=== PATIENT | female | born 1955 | race Hispanic/Latino ===

== ENCOUNTER → 2017-12-18 | Outpatient (CLI) | payer OTHER | END | disposition home or self-care (01) | LOC: SHCH 14:36 | PROVIDERS: ATTEND Internal Medicine Cardiovascular Disease | DX: I20.0 Unstable angina (principal) | CPT/HCPCS: 93306 ==

== ENCOUNTER → 2018-03-05 | Outpatient (CLI) | payer OTHER ==
[~2018-03-05] MED LIST: REGADENOSON 0.4 MG/5 ML PF SYG IVP SCH
== END | disposition home or self-care (01) ==
LOC: SHCH 09:42
PROVIDERS: ATTEND Internal Medicine Cardiovascular Disease
DX: I20.8 Other forms of angina pectoris (principal)
CPT/HCPCS: 78452; 93017; 96374; A9500 ×2; J2785

== ENCOUNTER → 2020-09-23 | Outpatient (CLI) | payer OTHER | END | disposition home or self-care (01) | LOC: SHCH 16:56 | PROVIDERS: ATTEND Internal Medicine Cardiovascular Disease | DX: R07.9 Chest pain, unspecified (principal) | CPT/HCPCS: 93306; 93356 ==

== ENCOUNTER → 2021-11-25 | Outpatient (CLI) | payer OTHER | END | disposition home or self-care (01) | LOC: SHCH 10:09 | PROVIDERS: ATTEND Internal Medicine Cardiovascular Disease | DX: I25.119 Atherosclerotic heart disease of native coronary artery with unspecified angina pectoris (principal); R06.09 Other forms of dyspnea; I10 Essential (primary) hypertension; E78.5 Hyperlipidemia, unspecified; E66.9 Obesity, unspecified | CPT/HCPCS: 93306 ==

== ENCOUNTER → 2021-11-29 | Outpatient (CLI) | payer OTHER | END | disposition home or self-care (01) | LOC: SHCH 08:22 | PROVIDERS: ATTEND Internal Medicine Cardiovascular Disease | DX: I20.9 Angina pectoris, unspecified (principal); R07.9 Chest pain, unspecified | CPT/HCPCS: 78452; 96374; 93017; J2785; A9500 ×2 ==

== ENCOUNTER → 2023-06-29 | Outpatient (CLI) | payer OTHER | END | disposition home or self-care (01) | LOC: SHCH 07:58 | PROVIDERS: ATTEND Internal Medicine Cardiovascular Disease | DX: I87.2 Venous insufficiency (chronic) (peripheral) (principal) | CPT/HCPCS: 93970 ==

== ENCOUNTER → 2023-08-17 | Outpatient (CLI) | payer OTHER | LOC: SHCH 07:48 | PROVIDERS: ATTEND Internal Medicine Cardiovascular Disease | DX: I51.89 Other ill-defined heart diseases (principal); I70.208 Unspecified atherosclerosis of native arteries of extremities, other extremity; R06.09 Other forms of dyspnea; I25.10 Atherosclerotic heart disease of native coronary artery without angina pectoris; I10 Essential (primary) hypertension; E78.5 Hyperlipidemia, unspecified | CPT/HCPCS: 93306; 93880 ==

== ENCOUNTER → 2024-04-01 | Outpatient (CLI) | payer OTHER ==
[2024-04-01 16:52] LABS: CREATININE 0.8 mg/dL (0.5-1.0); POTASSIUM 4.3 mmol/L (3.5-5.1)
== END | disposition home or self-care (01) ==
LOC: LAB 11:29
PROVIDERS: ATTEND Internal Medicine Cardiovascular Disease
DX: I20.0 Unstable angina (principal); R07.9 Chest pain, unspecified
CPT/HCPCS: 36415; 80048

== ENCOUNTER → 2024-04-08 | Outpatient (CLI) | payer OTHER ==
[~2024-04-08] MED LIST changes: +IOHEXOL-350 50ML VIAL IV ONE; +IOHEXOL-350 75 ML VIAL IV ONE; -REGADENOSON 0.4 MG/5 ML PF SYG IVP SCH; +metoPROLOL tartRATE 1 MG/ML 5ML VIAL IV ONE
--- NOTE | 2024-04-08 14:24 | HMCIMG ---
CT CARDIAC ANGIO W/CONT. CCTA HISTORY: Chest pain COMPARISON: None TECHNIQUE: Multiple sequential axial images of the chest were obtained along with the CT angiogram of the chest study. Patient was given 100 cc of Omnipaque through intravenous route. FINDINGS: There is no evidence of pulmonary nodule or parenchymal disease. No pleural effusion or pericardial effusion is seen. There is no evidence of pneumothorax. There are normal size mediastinal and hilar lymph nodes. The heart is not enlarged. Degenerative changes of the thoracolumbar spine are present. There is diaphragmatic hernia. IMPRESSION: 1. No evidence of pulmonary nodule or effusion is seen. Please see CT angiogram report of coronary arteries.
--- NOTE | 2024-04-10 16:59 | CARDIOLOGY ---
RAD REPORT: CORNARY CT ANGIO RADIOLOGY REPORT: CORONARY CT ANGIOGRAPHY DATE: Apr 10, 2024 QUALITY: Excellent CLINICAL HISTORY AND INDICATION: [ uncontrolled HTN ] TECHNIQUE: After obtaining a preliminary community services manager image, contrast imaging performed on an [employer] [id number] scanner. A dedicated, limited window, coronary imaging protocol was used, with single breath-hold, retrospective ECG gating, and automated arrhythmia rejection. 100 cc of low osmolar contrast agent: Omnipaque 350 was delivered via a 18-gauge IV catheter in the right antecubital fossa, using a power injector and followed by 60 cc of normal saline bolus as a chaser. Collimated images were reformatted at 0.5 mm intervals, and sent to an offline independent workstation for interpretation, using 3D anatomic reconstructions: Curved multiplanar reconstructions, maximum intensity projections, and multiplanar imaging. 5 mg IV metoprolol was administered prior to scanning. 0.8 mg SL nitroglycerin was given. CORONARY ARTERY DESCRIPTIONS: The coronary arteries arise in normal position. Left main coronary artery: Normal caliber vessel that bifurcates into the LAD and LCx. No stenosis. Left anterior descending coronary artery: Normal caliber vessel and gives rise to diagonal and septal branches. No stenosis. Left circumflex coronary artery: Normal caliber, nondominant and gives rise to a large OM branch. No stenosis. Right coronary artery: Large, dominant vessel giving rise to the PL and PDA branches. There is calcified plaque in the proximal RCA with 20-30% stenosis. CAD-RADs: 2, mild non obstructive CAD. Thoracic Aorta: Normal diameter. Yenni Vergara MD Cardiovascular Disease [facility] YENNI VERGARA MD Apr 10, 2024 16:59
== END | disposition home or self-care (01) ==
LOC: RAH 10:33
PROVIDERS: ATTEND Internal Medicine Cardiovascular Disease
DX: I25.10 Atherosclerotic heart disease of native coronary artery without angina pectoris (principal); R07.9 Chest pain, unspecified; K44.9 Diaphragmatic hernia without obstruction or gangrene; M47.815 Spondylosis without myelopathy or radiculopathy, thoracolumbar region
CPT/HCPCS: 75574; J3490; Q9967 ×2

== ENCOUNTER 2024-06-13 05:48 | Day surgery (SDC) | payer OTHER ==
[~2024-06-13] VITALS: Ht 149.9 cm; Wt 78.5 kg
[2024-06-13] VITALS (10 sets, daily range): BP systolic 91–141; BP diastolic 54–72; PULSE 61–79; RESP 15–18; TEMP 97–97.9
[2024-06-13] MEDS ORDERED: LOSA100T59 PO (06:29)
[2024-06-13] MEDS ORDERED: METO-391 PO (06:29)
[2024-06-13] MEDS ORDERED: AEC81 PO (06:29)
[2024-06-13] MEDS ORDERED: HYDR12.54 PO (06:29)
[2024-06-13] MEDS ORDERED: ISOS30TA92 PO (06:29)
[2024-06-13] MEDS ORDERED: PANT20TA18 PO (06:29)
[2024-06-13] MEDS: 0.9%NACL 1000ML 1,000 ML IV ONE (07:33)
[2024-06-13] MEDS ORDERED: LIDOCAINE PF 100MG/5ML (2%) SYRINGE 5ML ONE (08:41)
[2024-06-13] MEDS ORDERED: proPOFol 10 MG/ML 20ML VIAL IV ONE (08:41)
--- NOTE | 2024-06-13 10:07 | NUR ---
Full and complete discharge instructions given to Patient and Family both verbally and in writing. All questions answered. Tolerating PO fluids well. Voiced understanding to GI procedure and follow up. PIV removed with catheter tip intact. W\C to POV with Family to home.
== END 2024-06-13 10:00 | disposition home or self-care (01) ==
LOC: DAH 05:48 → ENDO 05:48
PROVIDERS: ATTEND Surgery
DX: K30 Functional dyspepsia (principal); K29.50 Unspecified chronic gastritis without bleeding; I85.00 Esophageal varices without bleeding; K29.70 Gastritis, unspecified, without bleeding; K44.9 Diaphragmatic hernia without obstruction or gangrene; I10 Essential (primary) hypertension; E78.5 Hyperlipidemia, unspecified; K21.9 Gastro-esophageal reflux disease without esophagitis; E11.9 Type 2 diabetes mellitus without complications; Z79.82 Long term (current) use of aspirin; Z79.84 Long term (current) use of oral hypoglycemic drugs; Z79.899 Other long term (current) drug therapy
CPT/HCPCS: 82948 ×2; 43239; J7030 ×2; J2003; J2704; A4620; A4215; A4223; A7002; A4222; A4221; A4663; A4606; J3490

== ENCOUNTER 2024-07-25 06:19 | Day surgery (SDC) | payer OTHER ==
[~2024-07-25] VITALS: Ht 149.9 cm; Wt 78.5 kg
[2024-07-25] VITALS (10 sets, daily range): BP systolic 101–137; BP diastolic 52–76; PULSE 58–72; RESP 15–18; TEMP 97.5–97.9
[~2024-07-25 06:19] MED LIST changes: +AEC81 PO; +HYDR12.54 PO; -IOHEXOL-350 50ML VIAL IV ONE; -IOHEXOL-350 75 ML VIAL IV ONE; +ISOS30TA92 PO; +LOSA100T59 PO; +METF-444 PO; +METO-391 PO; +PANT20TA18 PO; +ROSU5TAB51 PO; -metoPROLOL tartRATE 1 MG/ML 5ML VIAL IV ONE
[2024-07-25] MEDS: 0.9%NACL 1000ML 1,000 ML IV ONE (07:35)
[2024-07-25] MEDS ORDERED: proPOFol 10 MG/ML 20ML VIAL IV ONE ×2 (09:24→09:38)
--- NOTE | 2024-07-25 10:56 | NUR ---
Full and complete discharge instructions given to Patient and Family both verbally and in writing. Explained GI procedure precautions and follow up. All questions answered. PIV removed with catheter tip intact. Home with Family W/C to POV.
== END 2024-07-25 10:50 | disposition home or self-care (01) ==
LOC: DAH 06:19 → ENDO 06:19
PROVIDERS: ATTEND Internal Medicine Gastroenterology
DX: R93.5 Abnormal findings on diagnostic imaging of other abdominal regions, including retroperitoneum (principal); K29.50 Unspecified chronic gastritis without bleeding; K44.9 Diaphragmatic hernia without obstruction or gangrene; I85.00 Esophageal varices without bleeding; K92.9 Disease of digestive system, unspecified; K76.0 Fatty (change of) liver, not elsewhere classified; R93.3 Abnormal findings on diagnostic imaging of other parts of digestive tract; I10 Essential (primary) hypertension; E11.9 Type 2 diabetes mellitus without complications; E78.5 Hyperlipidemia, unspecified; Z79.84 Long term (current) use of oral hypoglycemic drugs; Z79.899 Other long term (current) drug therapy; Z79.82 Long term (current) use of aspirin; Z90.710 Acquired absence of both cervix and uterus; Z95.5 Presence of coronary angioplasty implant and graft; Z98.890 Other specified postprocedural states; Z79.01 Long term (current) use of anticoagulants
CPT/HCPCS: 43237; 82948 ×2; 43239; J7030 ×2; J2704 ×2; A4620; A4215; A4223; A7002; A4222; A4221; A4663; A4606; 43259; J3490

== ENCOUNTER 2024-09-12 06:15 | Inpatient (IN) | payer OTHER ==
[2024-09-10 11:05] LABS: BASOPHILS # (AUTO) 0.02 K/uL (0.00-0.20); BASOPHILS % (AUTO) 0.4 % (0.0-5.0); EOSINOPHILS # (AUTO) 0.08 K/uL (0.00-0.70); EOSINOPHILS % (AUTO) 1.5 % (0.0-8.0); HEMATOCRIT 42.8 % (36-48); IMMATURE GRANULOCYTE ABSOLUTE 0.02 K/uL (0-1); LYMPHOCYTES # (AUTO) 1.1 K/uL (1.0-4.8); MEAN CORPUSCULAR HEMOGLOBIN 26.4 pg (27.0-33.0); MEAN CORPUSCULAR HGB CONC 31.1 g/dL (32.0-36.0); MEAN CORPUSCULAR VOLUME 84.9 fL (79-99); MONOCYTES # (AUTO) 0.3 K/uL (0.1-1.0); MONOCYTES % (AUTO) 6.1 % (3.0-13.0); NEUTROPHILS # (AUTO) 3.9 K/uL (1.8-7.7); NEUTROPHILS % (AUTO) 71.6 % (40.0-77.0); PLATELET COUNT (AUTO) 188 K/uL (130-400); RED BLOOD CELL COUNT(AUTO) 5.04 MIL/uL (4.00-5.50); RED CELL DISTRIBUTION WIDTH 15.2 % (11.0-15.5); WHITE BLOOD COUNT (AUTO) 5.4 K/uL (4.8-10.8)
[2024-09-10 11:13] LABS: INR 1.08 (0.85-1.15); PROTHROMBIN TIME 11.4 SEC (9.6-11.6)
[2024-09-10 11:14] LABS: PARTIAL THROMBOPLASTIN TIME 24.4 SEC (26.3-35.5)
[2024-09-10 11:22] VITALS: BP 133/68; PULSE 69; RESP 17; TEMP 97.3
[2024-09-10 11:25] LABS: CREATININE 0.7 mg/dL (0.5-1.0); POTASSIUM 4.1 mmol/L (3.5-5.1)
[~2024-09-12] VITALS: Ht 149.9 cm; Wt 78.5 kg
[2024-09-12] VITALS (22 sets, daily range): BP systolic 107–166; BP diastolic 43–82; PULSE 39–62; RESP 12–21; TEMP 97–97.5
[~2024-09-12 06:15] MED LIST changes: -METO-391 PO; +METO50TA18 PO
[2024-09-12] MEDS: acetaMINOPHEN 100 ML ONE (06:51)
[2024-09-12] MEDS: FAMOTIDINE 20MG VIAL IV ONE (06:51)
[2024-09-12] MEDS ORDERED: rocuRONium bROMide 10MG/1ML 5ML VL ONE (07:03)
[2024-09-12] MEDS ORDERED: LIDOCAINE PF 100MG/5ML (2%) SYRINGE 5ML ONE (07:03)
[2024-09-12] MEDS ORDERED: proPOFol 10 MG/ML 20ML VIAL IV ONE (07:03)
[2024-09-12] MEDS ORDERED: FENTanyl CITRate PF 50 MCG/1 ML 2ML VIAL ONE (07:04)
[2024-09-12] MEDS ORDERED: ketaMINE 50MG/ML SYRINGE 50 MG/ML DISP.SYRIN ONE (07:05)
[2024-09-12] MEDS: INDOCYANINE GREEN 25 MG VIAL IJ ONE (07:12)
[2024-09-12] MEDS: ceFAZolin SODIUM 2 GM VIAL ONE (07:15)
[2024-09-12] MEDS: 0.9%NACL 1000ML 1,000 ML IV ONE (07:15)
[2024-09-12] MEDS ORDERED: BUPIvacaine/PF 0.25% 30ML VIAL IJ ONE (07:44)
[2024-09-12] MEDS ORDERED: ondanSETRON 4MG INJ ONE (08:26)
[2024-09-12] MEDS ORDERED: dexaMETHasone SOD PHOSPHATE 10MG/ML 1ML VIAL ONE (08:26)
[2024-09-12] MEDS ORDERED: GLYCOPYRROLATE 0.2 MG/ML 5 ML VIAL ONE (08:38)
[2024-09-12] MEDS ORDERED: NEOSTIGMINE METHYLSULFATE 1MG/ML IV ONE (08:39)
[2024-09-12] MEDS: GABApentin 100 MG CAPSULE ONE (08:46)
[2024-09-12] MEDS: BUPIvacaine/PF 0.25% 30ML VIAL IJ ONE ×2 (09:12)
[2024-09-12] MEDS ORDERED: HYDROcod/acetaMINOPHEN 7.5/325 MG 15 ML UDCUP PO PRN (11:00)
[2024-09-12] MEDS ORDERED: ondanSETRON 4MG INJ IVP PRN (11:00)
[2024-09-12] MEDS ORDERED: PROCHLORPERAZINE 10MG/2ML INJ IV PRN (11:00)
[2024-09-12] MEDS ORDERED: hydroMORPHone 1 MG INJ IVP PRN (11:00)
[2024-09-12] MEDS: morPHINE 2 MG SYG ONE (11:02)
--- NOTE | 2024-09-12 11:04 | PN ---
GENERAL SURGERY PROGRESS NOTE Date/Time Patient Seen: [ 09/12/2024 at 11:00 a.m.] Problem List: [ ] Interval History: [Postop day 0. Pain tolerable with p.r.n. medication. ] Physical Examination: ABD: [ Incisions clean, dry and intact, Dermabond in place Vital Signs (last 8hr) Date Time Temp Pulse Resp B/P (MAP) Pulse Ox O2 Delivery O2 Flow Rate FiO2 09/12/24 10:55 60 15 122/67 97 Nonrebreathing Mask 09/12/24 10:50 97.5 62 14 124/70 97 Nonrebreathing Mask 09/12/24 06:30 97.0 58 18 127/74 99 Room Air Laboratory: [ ] Chemistry Labs: Test 09/12/24 06:52 Range/Units Whole Blood Glucose 103 70-110 MG/DL Diagnostics / Radiology: [Copy/Paste Echos/Imaging Report here] Impression and Plan: [ Plan is for discharge home in the next day or two as long as patient tolerating p.o., ambulatory and pain under control. Discussed with patient and family. They understand and agree.] HARISH CONTEH Sep 12, 2024 11:04
--- NOTE | 2024-09-12 11:22 | OP ---
Operative Note: DATE OF PROCEDURE: 09/12/24 SURGEON: SLOANE CONTEH MD [employer] MACHINE OPERATOR: Jerzy Cotneh MD p.a. C ANESTHESIA: General and local ANESTHESIOLOGIST/FLIGHT COORDINATOR[place] [facility] [place] PREOPERATIVE DIAGNOSIS: Large hiatal hernia POSTOPERATIVE DIAGNOSIS: Large paraesophageal hiatal hernia with volvulized stomach SYNOPSIS: Reduction of gastric volvulus and repair of hiatal hernia with mesh reinforcement and Andrew fundoplication performed without complication PROCEDURE: 1. Robotic assisted hiatal hernia repair with mesh reinforcement 2. Reduction of gastric volvulus 3. Andrew fundoplication 4. EGD ESTIMATED BLOOD LOSS: Minimal, less than 30 cc INDICATIONS: As above DESCRIPTION OF PROCEDURE: After standard precautions and preparations were undertaken a Veress needle and optical trocar were used to enter the abdominal cavity. All other instruments were placed under direct vision. The robotic system was docked in the standard fashion. We began our dissection by noting the large hiatal defect which contained the proximal half of the stomach up in the mediastinum. On further inspection the defect was greater than 10 cm. The stomach was volvulized and a paraesophageal hiatal hernia sac and at both sliding and paraesophageal hernia components. We opened pars flaccida identifying the right augusto of the diaphragm and began our dissection entering into the mediastinum into a nearly avascular plane such that we could began mobilization of the distal esophagus and proximal stomach. Eventually we are able to circumferentially mobilize and had two at multiple points resect portions of the thickened hernia sac which was causing the retraction and volvulus station of the proximal stomach into the mediastinum. By the end of our dissection the GE junction was resting at the level of the hiatus or below without any tension. The stomach had been fully reduced into the abdominal cavity. My partner utilize the EGD scope throughout the case while I remained at the robotic console in order to visualize anatomic landmarks. We began our repair by reapproximating the crura starting at the crossing fibers and the retroesophageal space and working our way upwards towards the posterior esophageal wall. Care was taken not to over tighten. Due to the poor quality of the tissue and the size of the defect we decided to use a mesh reinforcement. We utilized a Bard slowly absorbable two sided mesh product and sutured in place in a horseshoe fashion as an overlay over our cruroplasty. The hernia was large enough that an anterior cranioplasty had to be performed as well in order to fully reapproximate the hernia defect. We then turned our attention to the fundoplication. The fundus had been freed of attachments during mobilization and now could be pulled through the retroesophageal window without any significant tension. The stomach easily wrapped circumferentially around the distal esophagus. We sutured the fundus in place and again reviewed with the EGD scope the pertinent anatomic landmarks. The hernia repair and fundoplication were appropriately located with no signs of over tightening. The distal esophagus and proximal stomach showed no signs of injury. Prior to ending the case all instrument counts were verified as correct incl uding needles and sponges. SLOANE CONTEH MD Sep 12, 2024 11:22
[2024-09-12] MEDS: ketOROlac 15MG/ML VIAL (15MG/ML) IV PRN (15:10)
--- NOTE | 2024-09-12 17:28 | NUR ---
PT eval complete. Pt ambulates mod assist x1 150ft with unsteady gait pattern, 2 loss of balance, decreased safety awareness. Pt back to bed with nausea and pain, nurse aware. Education provided to family regarding calling for help and requesting medications.
[2024-09-12] MEDS: LACTATED RINGERS 1000ML 1,000 ML IV SCH (19:00)
[2024-09-12] MEDS: ENOXAPARIN SODIUM 30 MG/0.3 ML SQ SCH (23:42)
--- NOTE | 2024-09-13 03:46 | NUR ---
PATIENT AND FAMILY REFUSED 4 AM VITALS PER [facility] PCT.
[2024-09-13 03:54] VITALS: RESP 20
[2024-09-13 04:40] VITALS: BP 126/52; PULSE 54; RESP 20; TEMP 97.6
[2024-09-13 08:00] VITALS: O2SAT 96
[2024-09-13 08:31] VITALS: BP 145/60; PULSE 61; RESP 18; TEMP 97.8
[2024-09-13] MEDS: FAMOTIDINE 20MG VIAL IV SCH (08:52)
[2024-09-13 11:37] VITALS: BP 129/71; PULSE 54; RESP 18; TEMP 97.4
--- NOTE | 2024-09-13 11:59 | NUR ---
DCP: HOME Pt currently lives with megan Powers [phone]. Pt does not report any insecurities with food, skilled nursing, and/or utilities. Pt does not have DME, home health, and or provider services. Pt is able to complete ADLs independently. PCP is Dr. Shepherd and uses [facility] for any RX needs. At CT pt will go home and family will assist with transportation. Addendum: 09/13/24 at 1201 by KAT HERMAN SS Amended: Links added.
[2024-09-13] MEDS ORDERED: hydroMORPHone 0.5 MG SYG (0.5MG/0.5ML) IVP PRN (12:00)
--- NOTE | 2024-09-13 15:01 | DS ---
Discharge Summary HOSPITAL COURSE SUMMARY: [] SUPERVISOR FOOD CHECKERS AND CASHIERS(S): [] PROCEDURES: [] PROBLEM(S): [] DISCHARGE INSTRUCTIONS: [] Home Meds Reported Medications Metoprolol Tartrate (Metoprolol Tartrate) 50 Mg Tablet, 50 MG PO BID, TAB 09/10/24 Metformin HCl (Metformin HCl) 500 Mg Tablet, 1 TAB PO BID for 30 Days, #60 TAB 0 Refills 07/24/24 Rosuvastatin Calcium (Rosuvastatin Calcium) 5 Mg Tablet, 1 TAB PO DAILY for high cholesterol for 30 Days, #30 TAB 0 Refills 07/24/24 Aspirin (ASPIRIN 81 MG ECTAB) 81 Mg Ectab, 81 MG PO DAILY, TAB.EC 06/13/24 Losartan Potassium (Losartan Potassium) 100 Mg Tablet, 1 TAB PO DAILY for 30 Days, #30 TAB 0 Refills 06/13/24 Hydrochlorothiazide (Hydrochlorothiazide) 12.5 Mg Tablet, 1 TAB PO DAILY for 30 Days, #30 TAB 0 Refills 06/13/24 Isosorbide Mononitrate (Isosorbide Mononitrate ER) 30 Mg Tab.er.24h, 1 TAB PO DAILY for 30 Days, #30 TAB 0 Refills 06/13/24 Pantoprazole Sodium (Pantoprazole Sodium) 20 Mg Tablet.dr, 1 TAB PO DAILY for 30 Days, #30 TAB 0 Refills 06/13/24 Discontinued Reported Medications Metoprolol Succinate (Metoprolol Succinate) 50 Mg Tab.er.24h, 50 MG PO BID, TAB 06/13/24 [facility] Sep 13, 2024 15:01
[2024-09-13 16:30] VITALS: BP 139/87; PULSE 56; RESP 18; TEMP 97.4
--- NOTE | 2024-09-13 16:38 | NUR ---
PATIENT DISCHARGED. PATIENT AWARE OF UPCOMING FOLLOW UP APPOINTMENT ON 07/17 WITH [facility]. IV REMOVED INTACT. EXPLAINED MEDICATIONS TO CONTINUE PER PROVIDER DISCHARGE INSTRUCTIONS. ALL BELONGINGS GATHERED BY PATIENT AND DAUGHTER. ALL QUESTIONS AND CONCERNS ANSWERED.
--- NOTE | 2024-09-13 17:03 | NUR ---
PT endorsed to NSG
--- NOTE | 2024-09-16 10:19 | NUR ---
Transitional Phone Call Patient returned call, states "doing okay, better than yesterday." States taking home medications as instructed; no questions or concerns with medication. [facility] has a follow up appointment with GI - Dr. Garcia this afternoon, 09/16/2024; [facility] will make the follow up appointment with PCP - Dr. Shepherd after attending the GI follow up appointment. No questions or concerns at this time.
== END 2024-09-13 16:48 | disposition home or self-care (01) | DRG 326 ==
LOC: DAH 06:15 → DAHIP 06:16 → 3CH 11:50
PROVIDERS: ADMIT Surgery; ATTEND Surgery
PROC: 0DJ08ZZ Inspection of Upper Intestinal Tract, Via Natural or Artificial Opening Endoscopic (ICD-10-PCS; 2024-09-12)
PROC: 8E0W4CZ Robotic Assisted Procedure of Trunk Region, Percutaneous Endoscopic Approach (ICD-10-PCS; 2024-09-12)
PROC: 0BUT4JZ Supplement Diaphragm with Synthetic Substitute, Percutaneous Endoscopic Approach (ICD-10-PCS; principal; 2024-09-12 08:14)
PROC: 0DV44ZZ Restriction of Esophagogastric Junction, Percutaneous Endoscopic Approach (ICD-10-PCS; 2024-09-12 08:14)
DX: K44.9 Diaphragmatic hernia without obstruction or gangrene (principal); K56.2 Volvulus; I10 Essential (primary) hypertension; E78.5 Hyperlipidemia, unspecified; E11.9 Type 2 diabetes mellitus without complications; Z90.710 Acquired absence of both cervix and uterus
CPT/HCPCS: 36415; 43235; 80048; 82948; 85025; 85610; 85730; 86850; 86900; 86901; G0378; J1100; J1650; J1885; J2003; J2270; J2405; J2704; J2710; J3010; J3490; J7030; A4215; A4216; A4221; A4222; A4223; A4600; A4663; A4930; A6260; C1781; J0665; J0690